=== PATIENT | female | born 1975 | race Caucasian/White ===

== ENCOUNTER → 2016-03-26 | Outpatient (CLI) | payer BC ==
--- NOTE | 2016-03-27 11:42 | MM ---
Reason for exam: screening (asymptomatic). Last mammogram was performed 1 year and 2 months ago. History: Patient had first child at age 31. Taking hormonal contraceptives for 19 years beginning at age 17. Physical Findings: A clinical breast exam by your physician is recommended on an annual basis and results should be correlated with mammographic findings. MG Screening Mammo w CAD Bilateral CC and MLO view(s) were taken. Prior study comparison: January 12, 2015, bilateral MG screening mammo w CAD. December 20, 2011, bilateral digital screening mammo w/CAD. Finding: Architectural distortion in both breasts consistent with post operative changes. ASSESSMENT: Benign, BI-RAD 2 RECOMMENDATION: Routine screening mammogram of both breasts in 1 year.
== END | disposition home or self-care (01) ==
LOC: RADMAMWWP 13:57
PROVIDERS: ATTEND Obstetrics & Gynecology
DX: Z12.31 Encounter for screening mammogram for malignant neoplasm of breast (principal)

== ENCOUNTER → 2016-04-17 | Outpatient (CLI) | payer BC ==
--- NOTE | 2016-04-17 14:51 | US ---
EXAMINATION TYPE: US kidneys/renal and bladder DATE OF EXAM: 04/17/2016 1:57 PM COMPARISON: Complete abdominal ultrasound December 20, 2011.. CLINICAL HISTORY: R93.8 Abn Finding on Diagnostic Imagining. Hydronephrosis seen on previous ultrasou nd at [facility] EXAM MEASUREMENTS: Right Kidney: 9.4 x 4.5 x 4.4 cm Left Kidney: 9.4 x 4.6 x 5.0 cm TECHNOLOGIST IMPRESSION: Right Kidney: wnl Left Kidney: wnl Bladder: wnl Bilateral Jets seen: yes There is no evidence for hydronephrosis at this point in time. No nephrolithiasis is seen. No mary s are identified on images saved. The urinary bladder is anechoic. Bilateral ureteral jets are seen . IMPRESSION: No hydronephrosis is present bilaterally on current study. Unremarkable exam.
== END | disposition home or self-care (01) ==
LOC: RADUSWWP 13:33
PROVIDERS: ATTEND Internal Medicine
DX: R93.8 Abnormal findings on diagnostic imaging of other specified body structures (principal)
CPT/HCPCS: 76770

== ENCOUNTER → 2016-07-18 | Outpatient (CLI) | payer BC ==
[2016-07-18 17:22] LABS: Appearance,Urine Clear (Clear); Bacteria,Urine Occasional /hpf; Bilirubin,Urine Negative (Negative); Glucose,Urine (UA) Negative (Negative); Ketones,Urine Negative (Negative); Leukocyte Esterase,Urine Negative (Negative); Mucus,Urine Rare /hpf; Nitrite,Urine Negative (Negative); Particle Count 2151; Protein,Urine Negative (Negative); RBC,Urine 7 /hpf (0-5); Specific Gravity,Urine 1.011 (1.001-1.035); Squamous Epithelial Cell,Urine <1 /hpf (0-4); UA Billing (MACRO vs. MICRO) MICRO; Urobilinogen,Urine <2.0 mg/dL (<2.0); WBC,Urine 1 /hpf (0-5)
== END | disposition home or self-care (01) ==
LOC: LABWHC1 16:39
PROVIDERS: ATTEND Obstetrics & Gynecology
DX: R30.0 Dysuria (principal)
CPT/HCPCS: 81001; 87086

== ENCOUNTER → 2017-04-02 | Outpatient (CLI) | payer BC ==
[2017-04-02 09:21] LABS: HCT 43.5 % (34.0-46.0); HGB 14.1 gm/dL (11.4-16.0); MCHC 32.4 g/dL (31.0-37.0); MCV 89.5 fL (80.0-100.0); Platelet Count 356 k/uL (150-450); RBC 4.86 m/uL (3.80-5.40); RDW 12.5 % (11.5-15.5); WBC 9.6 k/uL (3.8-10.6)
[2017-04-02 09:54] LABS: ALT 24 U/L (9-52); AST 21 U/L (14-36); Albumin 4.3 g/dL (3.5-5.0); Alkaline Phosphatase 85 U/L (38-126); Anion Gap 13 mmol/L; Blood Urea Nitrogen 15 mg/dL (7-17); Calcium 9.8 mg/dL (8.4-10.2); Carbon Dioxide 26 mmol/L (22-30); Chloride 104 mmol/L (98-107); Cholesterol 196 mg/dL (<200); Glucose 86 mg/dL (74-99); HDL Cholesterol 54 mg/dL (40-60); LDL Cholesterol,Calculated 116 mg/dL (0-99); Potassium 4.3 mmol/L (3.5-5.1); Sodium 143 mmol/L (137-145); Total Bilirubin 0.4 mg/dL (0.2-1.3); Total Protein 7.6 g/dL (6.3-8.2); Triglycerides 131 mg/dL (<150)
[2017-04-02 09:56] LABS: T4, Free (Free Thyroxine) 0.85 ng/dL (0.78-2.19)
== END | disposition home or self-care (01) ==
LOC: LABWHC1 08:48
PROVIDERS: ATTEND Physician Assistant
DX: Z00.00 Encounter for general adult medical examination without abnormal findings (principal); Z13.220 Encounter for screening for lipoid disorders; R53.83 Other fatigue
CPT/HCPCS: 36415; 80053; 80061; 82306; 84439; 84443; 85027

== ENCOUNTER → 2017-04-17 | Outpatient (CLI) | payer BC ==
--- NOTE | 2017-04-21 09:19 | MM ---
Reason for exam: screening (asymptomatic). Last mammogram was performed 1 year and 1 month ago. History: Patient had first child at age 31. Reductions of both breasts, 2016. Taking hormonal contraceptives for 19 years beginning at age 17. Physical Findings: A clinical breast exam by your physician is recommended on an annual basis and results should be correlated with mammographic findings. MG Screening Mammo w CAD Bilateral CC and MLO view(s) were taken. Prior study comparison: March 26, 2016, bilateral MG screening mammo w CAD. January 12, 2015, bilateral MG screening mammo w CAD. The breast tissue is heterogeneously dense. This may lower the sensitivity of mammography. Asymmetric density posterior left breast laterally does not have a correlate on the MLO view and likely represents summation shadow further evaluation is recommended. Linear calcifications 1 o'clock centrally left breast are new increased. ASSESSMENT: Incomplete: need additional imaging evaluation, BI-RAD 0 RECOMMENDATION: Special view mammogram of the left breast. If lesion persists on supplemental views, image directed ultrasound is recommended. [facility] will attempt to contact patient to return for supplemental views and ultrasound if indicated.
== END | disposition home or self-care (01) ==
LOC: RADMAMWWP 10:51
PROVIDERS: ATTEND Obstetrics & Gynecology
DX: Z12.31 Encounter for screening mammogram for malignant neoplasm of breast (principal); R92.8 Other abnormal and inconclusive findings on diagnostic imaging of breast
CPT/HCPCS: 77067

== ENCOUNTER → 2017-04-22 | Outpatient (CLI) | payer BC ==
--- NOTE | 2017-04-22 11:01 | MM ---
Reason for exam: additional evaluation requested from abnormal screening. Last mammogram was performed less than 1 month ago. History: Patient had first child at age 31. Reductions of both breasts, 2016. Taking hormonal contraceptives for 19 years beginning at age 17. Physical Findings: Nurse Summary: 0.5cm nodule in the left breast at 5 o'clock (nurse ms). MG Work Up Mamm w CAD LT ML with magnification, CC with magnification, and ML view(s) were taken of the left breast. Prior study comparison: April 17, 2017, bilateral MG screening mammo w CAD. March 26, 2016, bilateral MG screening mammo w CAD. There are scattered fibroglandular densities. Asymmetric densities localize to the lower outer quadrant and become less defined on additional views. Palpable marker 5 o'clock may correspond to scar. New linear calcifications central position 2-3 o'clock. These results were verbally communicated with the patient and result sheet given to the patient on 04/22/17. ASSESSMENT: Incomplete: need additional imaging evaluation, BI-RAD 0 RECOMMENDATION: Ultrasound of the left breast. (3-6 o'clock lower outer quadrant, including palpable)
--- NOTE | 2017-04-22 11:05 | USB ---
Reason for exam: additional evaluation requested from abnormal screening. History: Patient had first child at age 31. Reductions of both breasts, 2016. Taking hormonal contraceptives for 19 years beginning at age 17. US Breast Workup Limited LT Left breast ultrasound demonstrates a 1.1 x 1.4 x 1.3cm irregular lesion at 6 o'clock BB, this is right at the mammoplasty scar and may represent scar tissue. However, given the irregular appearance, ultrasound biopsy is recommended. Stereotactic biopsy is recommended of the new left calcifications. These results were verbally communicated with the patient and result sheet given to the patient on 04/22/17. ASSESSMENT: Suspicious, BI-RAD 4 RECOMMENDATION: Surgical consultation of the left breast. Ultrasound core biopsy of the left breast. (5 o'clock palpable) Stereotactic core biopsy of the left breast. (2-3 o'clock microcalcifications) Called Dr. Goldstein with mammographic findings and has scheduled an appointment for the patient for 05/14/17 at 4:[address] Jennings. Biopsy scheduled for 04/28/17 at 8 o'clock. PRELIMINARY REPORT CALLED AND FAXED TO DR. JENNINGS ON 04/22/17. [facility]
== END | disposition home or self-care (01) ==
LOC: RADMAMWWP 06:55
PROVIDERS: ATTEND Obstetrics & Gynecology
DX: R92.8 Other abnormal and inconclusive findings on diagnostic imaging of breast (principal)
CPT/HCPCS: 77065

== ENCOUNTER → 2017-04-28 | Day surgery (SDC) | payer BC ==
[2017-04-28 07:20] VITALS: RESP 16; TEMP 97.9; BMI 26.4
[2017-04-28 11:17] VITALS: BP 122/77; PULSE 64
--- NOTE | 2017-04-28 11:18 | USB ---
EXAMINATION TYPE: US biopsy breast VAD LT DATE OF EXAM: 04/28/2017 CLINICAL HISTORY: R92.8 Previous Abnormal Mammogram. TECHNIQUE: Ultrasound guided core biopsy of left breast. COMPARISON: 04/22/2017 FINDINGS: The procedure of ultrasound guided core biopsy was explained to the patient. Benefits, alternatives, and risks were discussed. An informed consent was then obtained. Preprocedural timeout was performed. The patient was placed in supine positioning for imaging and for the procedure. The overlying skin was prepped and draped in usual sterile fashion. 13 cc of Lidocaine buffered with bicarbonate was used as anesthetic into the skin and subcutaneous tissue up to the 1.4 x 1.1 x 1.3 cm lesion the palpable abnormality near the mammoplasty scar, possible fat necrosis. Under ultrasound guidance, a 12-gauge vacuum assisted biopsy gun device was used to obtain 4 core samples. Following this, a coil-shaped biopsy clip was left in mass. The patient tolerated the procedure well without any immediate complication. The patient was kept in the radiology department for short stay after the procedure and then discharged home in stable condition. Postprocedure mammogram in the CC and MLO projections demonstrating the biopsy marker appropriately placed. IMPRESSION: Successful, uncomplicated ultrasound guided core biopsy of the 1.4 cm mass at the 6:00 position within the left breast at the site of prior mammoplasty, possible fat necrosis/scarring, full pathology results to follow. Pathology Results: Benign A. BREAST, LEFT, CORE BIOPSY: SCAR WITH FIBROSIS, FAT NECROSIS AND CHRONIC INFLAMMATION. NEGATIVE FOR MALIGNANCY. B. BREAST, LEFT, CORE BIOPSY: SCAR WITH FIBROSIS, FAT NECROSIS, CHRONIC INFLAMMATION AND CALCIFICATIONS. NEGATIVE FOR MALIGNANCY. Recommendation Follow up mammogram and ultrasound of the left breast in 6 months. DAMIÁN
--- NOTE | 2017-04-28 11:32 | MM ---
EXAMINATION TYPE: MG stereo VAD BX LT DATE OF EXAM: 04/28/2017 COMPARISON: 04/22/2017 and 04/17/2017 CLINICAL HISTORY: 41-year-old female presents with request for stereotactic biopsy regarding a 1.0 cm group of linear oriented calcifications within the upper outer quadrant of the left breast. Patient is noted have prior mammoplasty. TECHNIQUE: Stereotactic guided core biopsy of left breast. FINDINGS: The procedure of stereotactic guided core biopsy was explained to the patient. Benefits, alternatives, and risks were discussed. An informed consent was then obtained. Preprocedural timeout was performed. The shortness pathway for biopsy was chosen. Shortness pathway was lateral the medial approach. Calcifications were targeted with preprocedural images and localized. Skin and subcutaneous soft tissues was anesthetized with 10 cc of lidocaine without epinephrine superficially and 5 cc of lidocaine with epinephrine at the site of biopsy. A vacuum assisted biopsy gun was used to obtain 10 core samples after insertion to the appropriate depth and confirmation with prefire images. The patient tolerated the procedure well without any immediate complication. The patient was kept in the radiology department for short stay after the procedure and then discharged home in stable condition. Targeted calcifications are identified in specimen mammogram. Post biopsy mammogram shows the T shaped biopsy marker appear in satisfactory position relative to the targeted area of concern on the preprocedure images. IMPRESSION: SUCCESSFUL, UNCOMPLICATED STEREOTACTIC GUIDED CORE BIOPSY OF AN INTERMEDIATE SUSPICION (GIVEN THIS PATIENT'S HISTORY OF MAMMOPLASTY) GROUP OF 1.0 CM LINEAR CALCIFICATIONS IN THE UPPER OUTER QUADRANT OF THE LEFT BREAST, FULL PATHOLOGY RESULTS TO FOLLOW. Pathology Results: Benign A. BREAST, LEFT, CORE BIOPSY: SCAR WITH FIBROSIS, FAT NECROSIS AND CHRONIC INFLAMMATION. NEGATIVE FOR MALIGNANCY. B. BREAST, LEFT, CORE BIOPSY: SCAR WITH FIBROSIS, FAT NECROSIS, CHRONIC INFLAMMATION AND CALCIFICATIONS. NEGATIVE FOR MALIGNANCY. Recommendation Follow up mammogram and ultrasound of the left breast in 6 months. NELLIED
== END ==
LOC: RADMAMWWP 06:59
PROVIDERS: ATTEND Surgery
DX: N60.32 Fibrosclerosis of left breast (principal); N64.1 Fat necrosis of breast; R92.1 Mammographic calcification found on diagnostic imaging of breast; Z98.890 Other specified postprocedural states
CPT/HCPCS: 88305; 19081; 19083; A4648 ×2; J2001

== ENCOUNTER → 2017-06-17 | Outpatient (CLI) | payer BC ==
--- NOTE | 2017-06-17 22:43 | MR ---
EXAMINATION TYPE: MR brain wo con DATE OF EXAM: 06/17/2017 4:47 PM COMPARISON: NONE HISTORY: MIGRAINES Multiplanar and multispin-echo imaging of the brain was performed . The ventricles, basal cisterns and sulci overlying the cerebral convexities are within normal limits. There is no evidence for midline shift or mass effect. Acute intracranial hemorrhage or extra-axial collection is not evident. The brain parenchyma reveals no abnormal increased signal. No acute edema is identified. The paranasal sinuses and mastoid air cells are well-aerated. IMPRESSION: Unremarkable MRI of the brain.
== END | disposition home or self-care (01) ==
LOC: RADMRIMAIN 16:10
PROVIDERS: ATTEND Psychiatry & Neurology Neurology
DX: G43.909 Migraine, unspecified, not intractable, without status migrainosus (principal)
CPT/HCPCS: 70551

== ENCOUNTER → 2017-10-27 | Outpatient (CLI) | payer BC ==
--- NOTE | 2017-10-27 08:47 | USB ---
Reason for exam: follow-up at short interval from prior study. History: Patient had first child at age 31. Benign MG stereo VAD BX LT of the left breast, April 28, 2017. Benign US biopsy breast VAD LT of the left breast, April 28, 2017. Reductions of both breasts, 2016. Taking hormonal contraceptives for 19 years beginning at age 17. US Breast LT Right complete breast ultrasound includes all four quadrants, the retroareolar region and axilla. Finding demonstrates a scar area with clip seen at 6 o'clock. These results were verbally communicated with the patient and result sheet given to the patient on 10/27/17. ASSESSMENT: Benign, BI-RAD 2 RECOMMENDATION: Return to routine screening mammogram schedule for both breasts.
== END | disposition home or self-care (01) ==
LOC: RADMAMWWP 07:41
PROVIDERS: ATTEND Surgery
DX: R92.8 Other abnormal and inconclusive findings on diagnostic imaging of breast (principal)
CPT/HCPCS: 77065

== ENCOUNTER → 2018-04-25 | Outpatient (CLI) | payer BC ==
[2018-04-25 12:04] LABS: Basophils # (A) 0.1 k/uL (0-0.2); Basophils % (A) 1 %; Eosinophils # (A) 0.1 k/uL (0-0.7); Eosinophils % (A) 1 %; HCT 45.4 % (34.0-46.0); HGB 14.5 gm/dL (11.4-16.0); Lymphocytes # (A) 2.4 k/uL (1.0-4.8); Lymphocytes % (A) 23 %; MCH 29.4 pg (25.0-35.0); MCV 91.8 fL (80.0-100.0); Mean Platelet Volume 7.5; Monocytes # (A) 0.5 k/uL (0-1.0); Monocytes % (A) 5 %; Neutrophils # (A) 7.3 k/uL (1.3-7.7); Neutrophils % (A) 70 %; Platelet Count 339 k/uL (150-450); RBC 4.94 m/uL (3.80-5.40); RDW 12.5 % (11.5-15.5); WBC 10.5 k/uL (3.8-10.6)
[2018-04-25 16:59] LABS: Albumin 4.3 g/dL (3.80-4.90); Albumin/Globulin Ratio 1.59 (1.60-3.17); Anion Gap 10.1 mmol/L (4.00-12.00); Calcium 9.3 mg/dL (8.7-10.3); Carbon Dioxide 25.9 mmol/L (21.6-31.8); Globulin 2.7 g/dL (1.6-3.3); Potassium 4.2 mmol/L (3.5-5.5); Total Bilirubin 0.4 mg/dL (0.2-1.2)
== END | disposition home or self-care (01) ==
LOC: LABWHC1 11:01
PROVIDERS: ATTEND Internal Medicine
DX: F41.9 Anxiety disorder, unspecified (principal); E55.9 Vitamin D deficiency, unspecified; Z13.6 Encounter for screening for cardiovascular disorders
CPT/HCPCS: 36415; 80053; 80061; 82306; 84443; 85025

== ENCOUNTER → 2018-07-30 | Outpatient (CLI) | payer BC ==
--- NOTE | 2018-07-30 13:38 | MM ---
Reason for exam: screening (asymptomatic). Last mammogram was performed 9 months ago. History: Patient had first child at age 31. Benign MG stereo VAD BX LT of the left breast, April 28, 2017. Benign US biopsy breast VAD LT of the left breast, April 28, 2017. Reductions of both breasts, 2016. Taking hormonal contraceptives for 19 years beginning at age 17. Physical Findings: A clinical breast exam by your physician is recommended on an annual basis and results should be correlated with mammographic findings. MG Screening Mammo w CAD Bilateral CC and MLO view(s) were taken. Prior study comparison: October 27, 2017, left breast MG diagnostic mammo LT w CAD. April 22, 2017, left breast MG work up mamm w CAD LT. The breast tissue is heterogeneously dense. This may lower the sensitivity of mammography. Left biopsy markers noted. Post surgical change of both breasts. ASSESSMENT: Benign, BI-RAD 2 RECOMMENDATION: Routine screening mammogram of both breasts in 1 year.
== END | disposition home or self-care (01) ==
LOC: RADMAMWWP 07:23
PROVIDERS: ATTEND Obstetrics & Gynecology
DX: Z12.31 Encounter for screening mammogram for malignant neoplasm of breast (principal)
CPT/HCPCS: 77067

== ENCOUNTER 2019-04-14 19:33 | Emergency (ER) | payer BC, OTHER ==
[2019-04-14 19:53] VITALS: TEMP 97.8
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
[2019-04-14 20:55] VITALS: BP 132/77; PULSE 71; RESP 18
[2019-04-14] MEDS ORDERED: ONDANSETRON ODT 4 MG TAB PO STA (21:02)
[2019-04-14] MEDS ORDERED: Acetaminophen-Codeine 300-30mg TAB PO STA (21:02)
[2019-04-14] MEDS ORDERED: ONDANSETRON 4 MG ODT STARTER PACK 2 TAB BTL PO STA (21:02)
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
== END 2019-04-14 22:11 | disposition home or self-care (01) ==
LOC: EC 19:33
DX: R51 Headache (principal); M54.2 Cervicalgia; I10 Essential (primary) hypertension; Z88.1 Allergy status to other antibiotic agents; Z88.2 Allergy status to sulfonamides; V48.5XXA Car driver injured in noncollision transport accident in traffic accident, initial encounter; Y92.410 Unspecified street and highway as the place of occurrence of the external cause
CPT/HCPCS: 72125; 70450; 99284; S0119

== ENCOUNTER → 2019-08-30 | Outpatient (CLI) | payer BC ==
--- NOTE | 2019-08-30 09:13 | US ---
EXAMINATION TYPE: US abdomen comp/pelvis limited DATE OF EXAM: 08/30/2019 COMPARISON: None CLINICAL HISTORY: 43-year-old female R10.13 epigastric pain. Hematuria. NPO. TECHNIQUE: Multiple sonographic images of the abdomen and bladder are obtained. FINDINGS: EXAM MEASUREMENTS: Liver Length: 16.4 cm Gallbladder Wall: 0.2 cm CBD: 0.4 cm Spleen: 8.3 cm Right Kidney: 9.2 x 5.1 x 3.4 cm Left Kidney: 9.1 x 4.2 x 4.6 cm Pancreas: wnl Liver: wnl Gallbladder: wnl CBD: wnl Spleen: wnl Kidneys: No hydronephrosis. Upper IVC: wnl Abd Aorta: No AAA visualized Bladder: Under distention limits its evaluation. No gross abnormality is seen. Bilateral Jets Seen IMPRESSION: Underdistention of the bladder limits its evaluation. No specific abnormality otherwise identified on abdominal ultrasound.
== END | disposition home or self-care (01) ==
LOC: RADUSWWP 07:08
PROVIDERS: ATTEND Internal Medicine
DX: R10.13 Epigastric pain (principal)
CPT/HCPCS: 76700; 76857

== ENCOUNTER → 2019-09-10 | Outpatient (CLI) | payer BC ==
--- NOTE | 2019-09-13 08:43 | MM ---
Reason for exam: screening (asymptomatic). Last mammogram was performed 1 year and 1 month ago. History: Patient had first child at age 31. Benign MG stereo VAD BX LT of the left breast, April 28, 2017. Benign US biopsy breast VAD LT of the left breast, April 28, 2017. Reductions of both breasts, 2016. Taking hormonal contraceptives for 19 years beginning at age 17. Physical Findings: A clinical breast exam by your physician is recommended on an annual basis and results should be correlated with mammographic findings. MG 3D Screening Mammo W/Cad Bilateral CC and MLO view(s) were taken. Prior study comparison: July 30, 2018, bilateral MG screening mammo w CAD. October 27, 2017, left breast MG diagnostic mammo LT w CAD. There are scattered fibroglandular densities. Previous mammotome biopsy in the left breast. No significant changes when compared with prior studies. ASSESSMENT: Benign, BI-RAD 2 RECOMMENDATION: Routine screening mammogram of both breasts in 1 year.
== END | disposition home or self-care (01) ==
LOC: RADMAMWWP 07:42
PROVIDERS: ATTEND Obstetrics & Gynecology
DX: Z12.31 Encounter for screening mammogram for malignant neoplasm of breast (principal)
CPT/HCPCS: 77063; 77067

== ENCOUNTER → 2020-10-26 | Outpatient (CLI) | payer BC ==
--- NOTE | 2020-10-30 11:39 | MM ---
Reason for exam: screening (asymptomatic). Last mammogram was performed 1 year and 2 months ago. History: Patient had first child at age 31. Benign MG stereo VAD BX LT of the left breast, April 28, 2017. Benign US biopsy breast VAD LT of the left breast, April 28, 2017. Reductions of both breasts, 2016. Taking hormonal contraceptives for 27 years beginning at age 17. Physical Findings: A clinical breast exam by your physician is recommended on an annual basis and results should be correlated with mammographic findings. MG 3D Screening Mammo W/Cad Bilateral CC and MLO view(s) were taken. Prior study comparison: September 10, 2019, bilateral MG 3d screening mammo w/cad. July 30, 2018, bilateral MG screening mammo w CAD. October 27, 2017, left breast MG diagnostic mammo LT w CAD. April 17, 2017, bilateral MG screening mammo w CAD. There are scattered fibroglandular densities. Previous mammotome biopsy in the left breast. No significant changes when compared with prior studies. ASSESSMENT: Negative, BI-RAD 1 RECOMMENDATION: Routine screening mammogram of both breasts in 1 year.
== END | disposition home or self-care (01) ==
LOC: RADMAMWWP 07:41
PROVIDERS: ATTEND Obstetrics & Gynecology
DX: Z12.31 Encounter for screening mammogram for malignant neoplasm of breast (principal); Z79.3 Long term (current) use of hormonal contraceptives
CPT/HCPCS: 77063; 77067

== ENCOUNTER → 2021-07-21 | Outpatient (CLI) | payer BC ==
--- NOTE | 2021-07-21 08:49 | MR ---
EXAMINATION TYPE: MR knee LT wo con DATE OF EXAM: 07/21/2021 COMPARISON: None. HISTORY: Left knee pain for one year. TECHNIQUE: Multiplanar, multisequence imaging of the left knee is performed without IV contrast. FINDINGS: Slightly suboptimal due to patient motion MEDIAL MENISCUS: Anterior and posterior horns are intact without tear. LATERAL MENISCUS: Anterior and posterior horns are intact without tear. CRUCIATE LIGAMENTS: The anterior and posterior cruciate ligaments are intact and unremarkable. COLLATERAL LIGAMENTS: The medial collateral ligament and lateral collateral ligament complex are inta ct and unremarkable. EXTENSOR MECHANISM: Visualized quadriceps and patellar tendons are intact. EFFUSION: No significant suprapatellar joint effusion. POPLITEAL CYST: No popliteal/butcher cyst. TRICOMPARTMENT SPACES: Focal moderate narrowing inferior patellofemoral compartment. No significant s purring. CARTILAGE: Some chondromalacia patella with cartilaginous loss inferior posterior patellar pole BONE MARROW SIGNAL: Some heterogeneity consistent with red marrow reconversion. Some areas of increas ed T2 signal inferior posterior patellar pole near cartilaginous loss. OTHER: No additional significant abnormality is appreciated. IMPRESSION: No meniscal or ligamentous tear is seen. Fairly moderate patellofemoral joint arthropathy inferiorly as detailed above.
== END | disposition home or self-care (01) ==
LOC: RADMRIMAIN 07:32
PROVIDERS: ATTEND Family Medicine
DX: M12.862 Other specific arthropathies, not elsewhere classified, left knee (principal); M22.42 Chondromalacia patellae, left knee

== ENCOUNTER → 2021-10-30 | Outpatient (CLI) | payer BC ==
--- NOTE | 2021-10-31 09:59 | MM ---
Reason for Exam: Screening (asymptomatic). Last screening mammogram was performed 12 month(s) ago. Patient History: Menarche at age 15. First Full-Term at age 31. Late child-bearing (after 30). Currently using Hormonal Contraceptives, beginning at age 17 for 27 years. 2016, Bilateral Reduction. 04/28/2017, Benign Core Biopsy on the left side. 04/28/2017, Benign Core Biopsy on the left side. Last menstrual period: 08/26/2021 Risk Values: Shayla 5 year model risk: 2.6%. NCI Lifetime model risk: 17.9%. Prior Study Comparison: 07/30/2018 Bilateral Screening Mammogram, [facility]. 09/10/2019 Bilateral Screening Mammogram, [facility]. 10/26/2020 Bilateral Screening Mammogram, [facility]. Tissue Density: There are scattered fibroglandular densities. Findings: Analyzed By CAD. Core markers are in the left breast. Calcification is within the right breast. This is an interval finding. Magnification views recommended. Overall Assessment: Incomplete: need additional imaging evaluation, BI-RAD 0 Management: Diagnostic Mammogram of the right breast. A negative mammogram report should not preclude additional follow up of suspicious palpable abnormalities. Patient should continue monthly self breast exam. A clinical breast exam by your physician is recommended on an annual basis and results should be correlated with mammographic findings. Electronically signed and approved by: Terry Gutierres D.O. Radiologis
== END | disposition home or self-care (01) ==
LOC: RADMAMWWP 15:59
PROVIDERS: ATTEND Obstetrics & Gynecology
DX: Z12.31 Encounter for screening mammogram for malignant neoplasm of breast (principal)
CPT/HCPCS: 77063; 77067

== ENCOUNTER → 2021-11-01 | Outpatient (CLI) | payer BC ==
--- NOTE | 2021-11-01 09:28 | MM ---
Reason for Exam: Additional evaluation requested from abnormal screening. Last screening mammogram was performed less than 1 month ago. Patient History: Menarche at age 15. First Full-Term at age 31. Late child-bearing (after 30). Currently using Hormonal Contraceptives, beginning at age 17 for 27 years. 2016, Bilateral Reduction. 04/28/2017, Benign Core Biopsy on the left side. 04/28/2017, Benign Core Biopsy on the left side. Risk Values: Shayla 5 year model risk: 2.6%. NCI Lifetime model risk: 17.9%. Tissue Density: Right: There are scattered fibroglandular densities. Findings: Analyzed By CAD. Some loosely grouped dystrophic and round calcifications persist on additional views. No suspicious new group of microcalcifications. Overall Assessment: Benign, BI-RAD 2 Management: Screening Mammogram of both breasts in 1 year. Back on annual schedule. Results were given to the patient verbally at the time of exam. Electronically signed and approved by: Padilla Sanchez M.D.
== END | disposition home or self-care (01) ==
LOC: RADMAMWWP 09:03
PROVIDERS: ATTEND Obstetrics & Gynecology
DX: R92.8 Other abnormal and inconclusive findings on diagnostic imaging of breast (principal); Z98.890 Other specified postprocedural states
CPT/HCPCS: 77061; 77065

== ENCOUNTER → 2022-11-13 | Outpatient (CLI) | payer BC ==
--- NOTE | 2022-11-13 14:16 | MM ---
Reason for Exam: Follow-up at short interval from prior study. Last mammogram was performed 1 year(s) and 1 month(s) ago. Patient History: Menarche at age 15. First Full-Term at age 31. Late child-bearing (after 30). Perimenopausal. Currently using Hormonal Contraceptives, beginning at age 17 for 27 years. 2016, Bilateral Reduction. 04/28/2017, Benign Core Biopsy on the left side. 04/28/2017, Benign Core Biopsy on the left side. Risk Values: Shayla 5 year model risk: 2.4%. NCI Lifetime model risk: 17.5%. Prior Study Comparison: 10/27/2017 Left Diagnostic Mammogram, [facility]. 10/27/2017 Left Diagnostic Ultrasound, [facility]. 07/30/2018 Bilateral Screening Mammogram, [facility]. 09/10/2019 Bilateral Screening Mammogram, [facility]. 10/26/2020 Bilateral Screening Mammogram, [facility]. 10/30/2021 Bilateral MG 3D screening mammo w/cad, [facility]. 11/01/2021 Right MG 3D work up w/cad RT, [facility]. Tissue Density: There are scattered fibroglandular densities. Findings: Analyzed By CAD. Pattern appears symmetrical. Some focal asymmetry is in the medial posterior left cranial caudal projection. Under compression the superior disperses normally. Benign calcifications are present bilaterally. Core marker is within the left breast. No suspicious groups of microcalcifications, spiculated or lobular masses, architectural distortion or other secondary signs of malignancy are mammographically apparent. Patient complains of right breast pain. Ultrasound is recommended. Overall Assessment: Incomplete: need additional imaging evaluation, BI-RAD 0 Management: Diagnostic Breast Ultrasound of the right breast. A negative mammogram report should not preclude additional follow up of suspicious palpable abnormalities. Patient should continue monthly self breast exam. A clinical breast exam by your physician is recommended on an annual basis and results should be correlated with mammographic findings. Electronically signed and approved by: Terry Gutierres D.O. Radiologis
--- NOTE | 2022-11-13 14:16 | USB ---
Reason for Exam: Clinical finding. Patient History: Menarche at age 15. First Full-Term at age 31. Late child-bearing (after 30). Perimenopausal. Currently using Hormonal Contraceptives, beginning at age 17 for 27 years. 2016, Bilateral Reduction. 04/28/2017, Benign Core Biopsy on the left side. 04/28/2017, Benign Core Biopsy on the left side. Risk Values: Shayla 5 year model risk: 2.4%. NCI Lifetime model risk: 17.5%. Technique: Method: Whole Breast Handheld. Prior Study Comparison: 10/26/2020 Bilateral Screening Mammogram, [facility]. 10/30/2021 Bilateral MG 3D screening mammo w/cad, [facility]. 11/01/2021 Right MG 3D work up w/cad RT, [facility]. Findings: The whole breast of the right breast, the axilla of the right breast and the retroareolar of the right breast were scanned. Pattern appears symmetrical. Some focal asymmetry is in the medial posterior left cranial caudal projection. Under compression the superior disperses normally. Benign calcifications are present bilaterally. Core marker is within the left breast. No suspicious groups of microcalcifications, spiculated or lobular masses, architectural distortion or other secondary signs of malignancy are mammographically apparent. Patient complains of right breast pain. Ultrasound is recommendedNo solid or cystic masses are identified. No abnormality of L4 patient's pain is evident..No solid or cystic masses are identified. No abnormality to account for patient's pain is evident.. Overall Assessment: Negative, BI-RAD 1 Management: Diagnostic Mammogram of the left breast in 6 months. A clinical breast exam by your physician is recommended on an annual basis and results should be correlated with mammographic findings. This exam should not preclude additional follow-up of suspicious palpable abnormalities. Results were given to the patient verbally at the time of exam. Electronically signed and approved by: Terry Gutierres D.O. Radiologis
== END | disposition home or self-care (01) ==
LOC: RADMAMWWP 13:05
PROVIDERS: ATTEND Obstetrics & Gynecology
DX: N64.4 Mastodynia (principal); R92.8 Other abnormal and inconclusive findings on diagnostic imaging of breast
CPT/HCPCS: 77062; 77066

== ENCOUNTER → 2023-05-26 | Outpatient (CLI) | payer BC ==
--- NOTE | 2023-05-26 09:36 | MM ---
Reason for Exam: Follow-up at short interval from prior study. Last screening mammogram was performed 6 month(s) ago. Patient History: Menarche at age 15. First Full-Term at age 31. Late child-bearing (after 30). Perimenopausal. Currently using Hormonal Contraceptives, beginning at age 17 for 27 years. 2016, Bilateral Reduction. 04/28/2017, Benign Core Biopsy on the left side. 04/28/2017, Benign Core Biopsy on the left side. Risk Values: Shayla 5 year model risk: 2.2%. NCI Lifetime model risk: 17.1%. Prior Study Comparison: 10/30/2021 Bilateral MG 3D screening mammo w/cad, [facility]. 11/01/2021 Right MG 3D work up w/cad RT, [facility]. 11/13/2022 Bilateral MG 3D diag mammo w/cad [place], [facility]. Tissue Density: Right: There are scattered areas of fibroglandular density. Findings: Analyzed By CAD. The pattern is stable Benign coarse calcifications are present. No significant interval change within the right breast is evident. No suspicious abnormality without patient's prior right breast pain. On review of prior images, there was some distortion of the left breast architecture on prior examination. Recheck of the left breast at this time is recommended. Overall Assessment: Incomplete: need additional imaging evaluation, BI-RAD 0 Management: Diagnostic Mammogram of the left breast. A negative mammogram report should not preclude additional follow up of suspicious palpable abnormalities. Patient should continue monthly self breast exam. A clinical breast exam by your physician is recommended on an annual basis and results should be correlated with mammographic findings. Electronically signed and approved by: Terry Gutierres D.O. Radiologis
--- NOTE | 2023-05-26 09:40 | MM ---
Reason for Exam: Additional evaluation requested from abnormal screening. Last screening mammogram was performed 6 month(s) ago. Patient History: Menarche at age 15. First Full-Term at age 31. Late child-bearing (after 30). Perimenopausal. Currently using Hormonal Contraceptives, beginning at age 17 for 27 years. 2016, Bilateral Reduction. 04/28/2017, Benign Core Biopsy on the left side. 04/28/2017, Benign Core Biopsy on the left side. Risk Values: Shayla 5 year model risk: 2.2%. NCI Lifetime model risk: 17.1%. Prior Study Comparison: 10/30/2021 Bilateral MG 3D screening mammo w/cad, [facility]. 11/01/2021 Right MG 3D work up w/cad RT, [facility]. 11/13/2022 Bilateral MG 3D diag mammo w/cad [place], [facility]. Tissue Density: Left: There are scattered areas of fibroglandular density. Findings: Analyzed By CAD. Additional imaging left breast is performed. There is an area of distortion which appears less prominent on the current examination within the outer left breast. Exaggerated lateral craniocaudal view was obtained without suspicious distortion. Some subtle underlying architectural distortion which can be related to patient's prior reduction surgery may be on the tomographic images. Suspicious interval change however is not identified. No suspicious groups of microcalcifications, spiculated or lobular masses, suspicious architectural distortion or other secondary signs of malignancy are mammographically apparent. Overall Assessment: Benign, BI-RAD 2 Management: Screening Mammogram of both breasts in 6 months. A negative mammogram report should not preclude additional follow up of suspicious palpable abnormalities. Patient should continue monthly self breast exam. A clinical breast exam by your physician is recommended on an annual basis and results should be correlated with mammographic findings. Electronically signed and approved by: Terry Gutierres D.O. Radiologis
== END | disposition home or self-care (01) ==
LOC: RADMAMWWP 07:43
PROVIDERS: ATTEND Family Medicine
DX: R92.323 Mammographic fibroglandular density, bilateral breasts (principal); R92.1 Mammographic calcification found on diagnostic imaging of breast
CPT/HCPCS: 77061; 77065

== ENCOUNTER → 2023-08-30 | Outpatient (CLI) | payer BC ==
--- NOTE | 2023-08-30 21:59 | MR ---
EXAMINATION TYPE: MR brain wo con DATE OF EXAM: 08/30/2023 COMPARISON: MRI brain June 17, 2017 HISTORY: Increase in migraines, vertigo, essential tremors. TECHNIQUE: Multiplanar, multisequence imaging of the brain and brainstem is performed without IV cont rast. FINDINGS: Diffusion weighted images demonstrate no evidence of a recent infarct or other diffusion abnormality. There is no new extraaxial fluid collection or significant white matter signal abnormality. The vent ricular system and cisternal spaces remain normal in size and appearance. The brain volume is age ap propriate. Midline structures redemonstrate normal morphology. The craniocervical junction remaining within nor mal limits. Normal vascular flow voids are present. The visualized sinuses are clear and the globes a re intact. IMPRESSION: Unremarkable study. No significant change from prior.
== END | disposition home or self-care (01) ==
LOC: RADMRIMAIN 12:19
PROVIDERS: ATTEND Psychiatry & Neurology Neurology
DX: G43.009 Migraine without aura, not intractable, without status migrainosus (principal); G25.0 Essential tremor; H81.10 Benign paroxysmal vertigo, unspecified ear
CPT/HCPCS: 70551